=== PATIENT | male | born 1990 | race Caucasian/White ===

== ENCOUNTER → 2018-04-11 | Outpatient (REF) | payer MEDICAID ==
[2018-04-11 16:15] LABS: APPEARANCE, URINE CLEAR (CLEAR); BACTERIA, URINE AUTO NEGATIVE (NEGATIVE); BILIRUBIN, URINE AUTO NEGATIVE (NEGATIVE); BLOOD, URINE BLOOD NEGATIVE (NEGATIVE); COLOR, URINE STRAW (YELLOW); GLUCOSE, URINE (UA) AUTO NEGATIVE (NEGATIVE); KETONE, URINE AUTO NEGATIVE (NEGATIVE); LEUKOCYTE ESTERASE, URINE AUTO NEGATIVE (NEGATIVE); NITRITE, URINE AUTO NEGATIVE (NEGATIVE); PROTEIN, URINE AUTO NEGATIVE (NEGATIVE); RBC, URINE AUTO 0 /HPF (0-3); SPECIFIC GRAVITY URINE AUTO 1.004 (1.002-1.035); SQUAMOUS EPITHELIAL CELL UR AU 0 /HPF (0-6); UROBILINOGEN, URINE AUTO 0.2 mg/dL (0.0-2.0); WBC, URINE AUTO 0 /HPF (0-3)
== END ==
LOC: M SFHCPLAZ 15:41
DX: R30.0 Dysuria (principal)

== ENCOUNTER → 2018-09-02 | Outpatient (REF) | payer MEDICAID ==
[2018-09-02 19:00] LABS: ALBUMIN/GLOBULIN RATIO 0.95 (1.00-1.93); ALKALINE PHOSPHATASE 120 U/L (45-117); ALT/SGPT 24 U/L (12-78); ANION GAP 8 MEQ/L (8-16); AST/SGOT 15 U/L (7-37); BILIRUBIN,TOTAL 0.4 MG/DL (0.2-1.0); BLOOD UREA NITROGEN 11 MG/DL (7-18); CALCIUM LEVEL 9.5 MG/DL (8.5-10.1); CARBON DIOXIDE LEVEL 29 MEQ/L (21-32); CHLORIDE LEVEL 106 MEQ/L (98-107); CREATININE FOR GFR 1.11 MG/DL (0.70-1.30); FREE T4 0.74 NG/DL (0.76-1.46); GLOMERULAR FILTRATION RATE > 60.0 (>60); GLUCOSE, FASTING 143 MG/DL (70-100); POTASSIUM SERUM 5.1 MEQ/L (3.5-5.1); SODIUM LEVEL 143 MEQ/L (136-145); TOTAL 25(OH) VITAMIN D 15.9 NG/ML (30.0-100.0); TOTAL PROTEIN 8.2 GM/DL (6.4-8.2)
[2018-09-02 19:15] LABS: BASO # 0.1 10^3/uL (0.0-0.2); BASO % 0.6 % (0.0-1.0); EOS # 0.1 10^3/uL (0.0-0.50); HEMATOCRIT 45.6 % (42.0-52.0); HEMOGLOBIN 15.8 g/dl (13.5-17.5); IMMATURE GRANULOCYTE % 0.1 % (0-3.0); LYMPH # 2.4 10^3/uL (1.5-6.5); LYMPH % 24.3 % (24.0-44.0); MEAN CORPUSCULAR HEMOGLOBIN 29.4 pg (27.0-33.0); MEAN CORPUSCULAR HGB CONC 34.6 g/dl (32.0-36.5); MEAN CORPUSCULAR VOLUME 84.8 fl (80.0-96.0); MONO # 0.8 10^3/uL (0.0-0.8); MONO % 8.4 % (0.0-5.0); NEUTROPHILS # 6.4 10^3/uL (1.8-7.7); NEUTROPHILS % 65.6 % (36.0-66.0); PLATELET COUNT, AUTOMATED 361 10^3/uL (150-450); RED BLOOD COUNT 5.38 10^6/uL (4.30-6.10); RED CELL DISTRIBUTION WIDTH 13.8 % (11.5-14.5); WHITE BLOOD COUNT 9.7 10^3/uL (4.0-10.0)
== END ==
LOC: M SFHCPLAZ 15:23
DX: F32.0 Major depressive disorder, single episode, mild (principal); J30.1 Allergic rhinitis due to pollen
CPT/HCPCS: 36415

== ENCOUNTER → 2018-11-19 | Outpatient (CLI) | payer MEDICAID ==
--- NOTE | 2018-11-19 18:39 | REP ---
Chest two views HISTORY: Fever Comparison: None There is elevation of the right hemidiaphragm. The lungs are clear. The heart is normal in size. The pulmonary vasculature is normal in appearance. The bony structure is intact. IMPRESSION: No acute disease. Electronically Signed by Bipin Ortiz MD 11/19/2018 06:31 P
== END ==
LOC: M WUC 18:00
PROVIDERS: ATTEND Physician Assistant Medical
DX: R50.9 Fever, unspecified (principal)

== ENCOUNTER 2024-07-10 14:39 | Inpatient (IN) | payer MEDICAID ==
[~2024-07-10] VITALS: Ht 185.4 cm; Wt 93.2 kg
[2024-07-10] MEDS ORDERED: HYDR-161 PO (14:56)
[2024-07-10] MEDS ORDERED: RISP-105 PO (14:56)
[2024-07-10] MEDS ORDERED: MIRT1TAB15 PO (14:56)
[2024-07-10] MEDS ORDERED: ALPR2TAB3 PO (14:56)
[2024-07-10] MEDS ORDERED: CLON0.2T PO (14:57)
[2024-07-10] MEDS: ONDANSETRON 4MG 2ML VIAL IV ONE (15:34)
[2024-07-10] MEDS ORDERED: HYDR-643 PO (17:41)
[2024-07-10] MEDS ORDERED: ALPR1TAB3 PO (17:41)
[2024-07-10] MEDS ORDERED: HOME MED LIST COMPLETE! XX SCH (17:45)
[2024-07-10] MEDS: ALPRAZolam 0.5 MG TAB PO PRN (19:03)
[2024-07-10] MEDS: MIRTAZAPINE 15 MG TAB PO SCH (21:18)
[2024-07-10] MEDS: risperiDONE 2 MG TAB PO SCH (21:18)
[2024-07-11] MEDS: cloNIDine 0.2 MG TAB PO SCH (09:00)
[2024-07-11 15:53] VITALS: BP 137/89; TEMP 97.2; O2SAT 96
[2024-07-11] MEDS: RIVAROXABAN 10MG TAB (XARELTO) PO SCH (17:37)
[2024-07-11 20:43] VITALS: BP 140/88; TEMP 97.9; O2SAT 94
[2024-07-12 04:00] VITALS: BP 112/69; TEMP 98.1; O2SAT 97
[2024-07-12 12:00] VITALS: BP 116/72; TEMP 98.2; O2SAT 94
[2024-07-12 20:35] VITALS: BP 117/78; TEMP 98.2; O2SAT 96
[2024-07-13 04:00] VITALS: BP 124/74; TEMP 98.1; O2SAT 97
[2024-07-13 12:00] VITALS: BP 118/76; TEMP 98.1; O2SAT 94
[2024-07-13] MEDS ORDERED: PREPARATION H OINTMENT (HEMORRHOID) PR PRN (15:45)
[2024-07-13] MEDS: ALPRAZolam 0.5 MG TAB PO SCH (16:41)
[2024-07-14 04:00] VITALS: BP 119/74; TEMP 97.7
[2024-07-14] MEDS: ALPRAZolam 0.5 MG TAB PO PRN (16:52)
[2024-07-15 04:00] VITALS: BP 139/89; TEMP 98.1; O2SAT 99
[2024-07-16 05:27] VITALS: BP 134/82; TEMP 98.2
[2024-07-16 21:12] VITALS: BP 131/81; TEMP 97.7
[2024-07-17 04:10] VITALS: BP 101/59; TEMP 97.9
[2024-07-17 08:00] VITALS: BP 138/66; TEMP 97.5; O2SAT 97
[2024-07-17 20:48] VITALS: BP 107/68; TEMP 97.9
[2024-07-18 20:51] VITALS: BP 117/64; TEMP 98.1; O2SAT 96
[2024-07-20 04:59] VITALS: BP 127/79; TEMP 97.7; O2SAT 96
[2024-07-21 04:25] VITALS: BP 114/72; TEMP 98.1; O2SAT 94
[2024-07-21 20:54] VITALS: BP 109/71; TEMP 97.9; O2SAT 96
[2024-07-21] MEDS: risperiDONE 3 MG TAB PO SCH (20:59)
[2024-07-22] MEDS: risperiDONE 2 MG TAB PO SCH (20:32)
[2024-07-23 04:46] VITALS: BP 138/80; TEMP 97.9; O2SAT 96
[2024-07-23] MEDS: BREXPIPRAZOLE 0.5MG TABLET (REXULTI) PO SCH (08:50)
[2024-07-23] MEDS: RISPERIDONE 1 MG TAB PO PRN (09:39)
[2024-07-23] MEDS: HALOPERIDOL LACTATE 5MG/ML VIAL IM PRN (23:03)
[2024-07-24 04:44] VITALS: BP 114/73; TEMP 97.5; O2SAT 96
[2024-07-25 04:40] VITALS: BP 114/72; TEMP 98.1; O2SAT 98
[2024-07-26] MEDS: HALOPERIDOL LACTATE 5MG/ML VIAL IM STA (08:38)
[2024-07-27 12:00] VITALS: BP 109/71; TEMP 97.8; O2SAT 98
[2024-07-28 05:52] VITALS: BP 120/67; TEMP 97.7; O2SAT 97
[2024-07-29 04:57] VITALS: BP 116/72; TEMP 97.9; O2SAT 97
[2024-07-29] MEDS: BREXPIPRAZOLE 2MG TABLET (REXULTI) PO SCH (08:36)
[2024-07-29] MEDS: RISPERIDONE 1 MG TAB PO SCH (08:36)
[2024-07-29] MEDS ORDERED: BREXPIPRAZOLE 0.5MG TABLET (REXULTI) PO SCH (09:00)
[2024-07-29 20:01] VITALS: BP 143/87
[2024-07-31 03:36] VITALS: BP 138/90; TEMP 96.6
[2024-07-31 19:50] VITALS: BP 110/75
[2024-08-02] MEDS ORDERED: MOM 30ML SUSPENSION UDC PO PRN (14:25)
[2024-08-02] MEDS: DOCUSATE SODIUM 100MG CAPSULE PO PRN (15:56)
[2024-08-02] MEDS: ACETAMINOPHEN 500 MG TAB PO ONE (15:56)
[2024-08-02 19:46] VITALS: BP 122/70
[2024-08-03 04:27] VITALS: BP 133/87; TEMP 97.7; O2SAT 97
[2024-08-03] MEDS: risperiDONE 0.5 MG TAB PO SCH (09:03)
[2024-08-03 19:50] VITALS: BP 129/74
[2024-08-04 20:21] VITALS: BP 108/76
[2024-08-05 04:21] VITALS: BP 124/75; TEMP 97.9; O2SAT 98
[2024-08-05] MEDS: ACETAMINOPHEN 325 MG TAB PO PRN (15:12)
[2024-08-05] MEDS ORDERED: chlorproMAZINE INJ 50MG/2ML AMP IM PRN (16:00)
[2024-08-07 04:35] VITALS: BP 139/90; TEMP 97.3
[2024-08-07 20:06] VITALS: BP 137/88
[2024-08-08 04:24] VITALS: BP 102/71; TEMP 97.7; O2SAT 97
[2024-08-09 04:39] VITALS: BP 113/80; TEMP 97.5; O2SAT 98
[2024-08-10 05:31] VITALS: BP 104/73; TEMP 98.1; O2SAT 98
[2024-08-10 20:02] VITALS: BP 111/79
[2024-08-11 04:31] VITALS: BP 132/95; TEMP 97.7; O2SAT 96
[2024-08-11 19:58] VITALS: BP 116/79
[2024-08-12 04:20] VITALS: BP 118/76; TEMP 97.5; O2SAT 97
[2024-08-12 19:59] VITALS: BP 143/75
[2024-08-13 04:32] VITALS: BP 97/70; TEMP 97.5; O2SAT 97
[2024-08-13 08:15] VITALS: BP 127/60
[2024-08-14 17:02] VITALS: BP 80/56; TEMP 97.5; O2SAT 96
[2024-08-15 03:52] VITALS: BP 108/63; TEMP 97.9; O2SAT 97
[2024-08-15] MEDS ORDERED: TUBERCULIN PPD 5 UNITS/0.1 ML ID ONE ×2 (16:45→19:00)
[2024-08-16 04:00] VITALS: TEMP 96.8
[2024-08-16] MEDS ORDERED: TUBERCULIN PPD 5 UNITS/0.1 ML ID ONE (10:00)
[2024-08-17] MEDS ORDERED: PPD DOCUMENTATION ENTRY MISC XX SCH ×2 (10:00)
[2024-08-17] MEDS: PPD DOCUMENTATION ENTRY MISC XX SCH (10:00)
[2024-08-17] MEDS: diazePAM 5MG TABLET PO PRN (16:02)
[2024-08-17] MEDS ORDERED: TUBERCULIN PPD 5 UNITS/0.1 ML ID ONE (17:00)
[2024-08-18 04:13] VITALS: TEMP 97.8; O2SAT 98
[2024-08-18 20:03] VITALS: BP 126/74
[2024-08-19] MEDS: PPD DOCUMENTATION ENTRY MISC XX ONE (17:38)
[2024-08-21 05:52] VITALS: BP 132/87; TEMP 97.7; O2SAT 96
[2024-08-21 08:18] VITALS: BP 132/87
[2024-08-22] MEDS ORDERED: REXU1TAB4 PO (10:54)
[2024-08-22] MEDS ORDERED: VALI2TAB PO (10:54)
[2024-08-22] MEDS ORDERED: MIRT1TAB16 PO (10:54)
[2024-08-22] MEDS ORDERED: DIAZ5CON PO (11:17)
[2024-08-22] MEDS ORDERED: ALPR2TAB3 PO (13:45)
== END 2024-08-22 16:25 | disposition home or self-care (01) | DRG 760 ==
LOC: M ED 14:39 → EDBD 14:39 → M ED INP 14:40 → M MS5PR 07-11 15:53 → OBSVTOIN 07-13 15:37 → INTOOBSV 07-13 15:37 → UNDODISIN 08-02 16:50
PROVIDERS: ADMIT Internal Medicine; ATTEND Internal Medicine
DX: R45.1 Restlessness and agitation (principal); F84.0 Autistic disorder; F91.9 Conduct disorder, unspecified; F39 Unspecified mood [affective] disorder; Z79.899 Other long term (current) drug therapy; Z88.8 Allergy status to other drugs, medicaments and biological substances